=== PATIENT | male | born 1950 | race Caucasian/White ===

== ENCOUNTER → 2020-09-02 | Outpatient (CLI) | payer OTHER, BC | LOC: RAD 08:08 | PROC: BP08ZZZ Plain Radiography of Right Shoulder (ICD-10-PCS; principal; 2020-09-02) | DX: S43.431A Superior glenoid labrum lesion of right shoulder, initial encounter (principal); M75.121 Complete rotator cuff tear or rupture of right shoulder, not specified as traumatic; X58.XXXA Exposure to other specified factors, initial encounter | CPT/HCPCS: 73040; 73222; A9577; Q9962 ==